=== PATIENT | female | born 1950 | race Caucasian/White ===

== ENCOUNTER 2019-04-02 13:01 | Day surgery (SDC) | payer MEDICARE, OTHER ==
[~2019-04-02] VITALS: Ht 165.1 cm; Wt 61.6 kg
[~2019-04-02 13:01] MED LIST: ADVICOR; ASPI81EC; DIPASPER PO; FAMO20 PO; LEVSOD100; LEVSOD75 PO; LISI5 PO; PANT20 PO; PANT40 PO; ROSU10TA PO; ROSU5 PO; TRAM50 PO; VITS; Zofran4 MG PO
== END 2019-04-02 15:10 | disposition home or self-care (01) ==
LOC: ORSCSDS 13:01
PROVIDERS: Surgery
PROC: 0DB48ZX Excision of Esophagogastric Junction, Via Natural or Artificial Opening Endoscopic, Diagnostic (ICD-10-PCS; principal; 2019-04-02 14:15)
PROC: 0DB68ZX Excision of Stomach, Via Natural or Artificial Opening Endoscopic, Diagnostic (ICD-10-PCS; principal; 2019-04-02 14:15)
DX: K22.70 Barrett's esophagus without dysplasia (principal); K21.9 Gastro-esophageal reflux disease without esophagitis; K44.9 Diaphragmatic hernia without obstruction or gangrene; Z86.73 Personal history of transient ischemic attack (TIA), and cerebral infarction without residual deficits; E03.9 Hypothyroidism, unspecified; Z79.82 Long term (current) use of aspirin; Z79.899 Other long term (current) drug therapy
CPT/HCPCS: 88305; 88342; J2704; J7120

== ENCOUNTER → 2020-11-17 | Outpatient (CLI) | payer MEDICARE ==
[~2020-11-17] MED LIST changes: +ASPI81CH PO; -ASPI81EC; +FOLIC ACID0.8 MG PO; +LEVFLO500 PO; +LEVSOD100 PO; +PANTOPRAZOLE SO40 M2 PO; +Vitamin D1000 UNI1 PO
[2020-11-21 13:20] LABS: CORONAVIRUS (COVID19) CSH-NRL Negative (Negative)
== END ==
LOC: LAB 19:27
PROVIDERS: Physician Assistant
DX: Z20.828 Contact with and (suspected) exposure to other viral communicable diseases (principal)
CPT/HCPCS: U0003

== ENCOUNTER 2020-12-15 00:06 | Day surgery (SDC) | payer MEDICARE ==
[~2020-12-15 00:06] MED LIST changes: -FOLIC ACID0.8 MG PO; -LEVSOD100 PO; -PANTOPRAZOLE SO40 M2 PO; -Vitamin D1000 UNI1 PO
[2020-12-15] MEDS ORDERED: PANTOPRAZOLE SO40 M2 PO (09:21)
[2020-12-15] MEDS ORDERED: LEVSOD100 PO (09:21)
[2020-12-15] MEDS ORDERED: Vitamin D1000 UNI1 PO (09:22)
[2020-12-15] MEDS ORDERED: FOLIC ACID0.8 MG PO (09:23)
== END 2020-12-15 10:10 | disposition home or self-care (01) ==
LOC: LAB 00:06
DX: I95.9 Hypotension, unspecified (principal); E16.2 Hypoglycemia, unspecified; Z79.82 Long term (current) use of aspirin; Z79.899 Other long term (current) drug therapy; Z88.1 Allergy status to other antibiotic agents; Z88.2 Allergy status to sulfonamides; Z91.040 Latex allergy status; Z91.048 Other nonmedicinal substance allergy status; Z20.822 Contact with and (suspected) exposure to COVID-19
CPT/HCPCS: 36415; 80400; 82533; 96372; J0834

== ENCOUNTER → 2021-02-02 | Outpatient (CLI) | payer MEDICARE ==
[~2021-02-02] MED LIST changes: +FOLIC ACID0.8 MG PO; +LEVSOD100 PO; +PANTOPRAZOLE SO40 M2 PO; +Vitamin D1000 UNI1 PO
[2021-02-06 13:08] LABS: CREATININE, URINE 53.6 mg/dL (Not Estab.); N-TELO/CREAT. RATIO 13 (0-89); N-TELOPEPTIDE 61 nmol BCE (Not Estab.)
== END | disposition home or self-care (01) ==
LOC: LAB SHORT 05:00 → LAB 05:00 → LAB FUT 01-26 14:00
PROVIDERS: Internal Medicine
DX: E78.5 Hyperlipidemia, unspecified (principal); E03.9 Hypothyroidism, unspecified; E55.9 Vitamin D deficiency, unspecified; E53.8 Deficiency of other specified B group vitamins; M81.0 Age-related osteoporosis without current pathological fracture; Z79.899 Other long term (current) drug therapy
CPT/HCPCS: 82523; 82570

== ENCOUNTER → 2021-11-15 | Outpatient (CLI) | payer MEDICARE | END | disposition home or self-care (01) | LOC: LAB SHORT 12:31 → LAB 12:31 | DX: D22.72 Melanocytic nevi of left lower limb, including hip (principal); L81.4 Other melanin hyperpigmentation | CPT/HCPCS: 88305 ==

== ENCOUNTER 2022-02-07 09:49 | Day surgery (SDC) | payer MEDICARE ==
[~2022-02-07 09:49] MED LIST changes: +ROSU10TA
== END 2022-02-12 22:49 | disposition home or self-care (01) ==
LOC: MOI MAM 09:49
DX: D05.12 Intraductal carcinoma in situ of left breast (principal); Z85.3 Personal history of malignant neoplasm of breast; Z17.0 Estrogen receptor positive status [ER+]
CPT/HCPCS: 19281; A4648

== ENCOUNTER 2023-06-02 09:04 | Emergency (ER) | payer MEDICARE ==
[~2023-06-02] VITALS: Ht 165.1 cm; Wt 52.2 kg
[2023-06-02 10:10] LABS: BASOPHILS ABSOLUTE AUTO 0.06 K/mm3 (0.00-0.23); BASOPHILS PERCENT AUTO 1 % (0-2); EOSINOPHILS ABSOLUTE AUTO 0.07 K/mm3 (0.00-0.68); EOSINOPHILS PERCENT AUTO 1 % (0-6); Hematocrit 38.6 % (33.0-51.0); Hemoglobin 12.7 g/dL (11.5-16.0); IMMATURE GRAN ABSOLUTE AUTO 0.01 K/mm3 (0.00-0.10); IMMATURE GRAN PERCENT AUTO 0 % (0-1); LYMPHOCYTES ABSOLUTE AUTO 0.99 K/mm3 (0.84-5.20); LYMPHOCYTES PERCENT AUTO 18 % (21-46); MONOCYTES ABSOLUTE AUTO 0.39 K/mm3 (0.16-1.47); MONOCYTES PERCENT AUTO 7 % (4-13); Mean Corpuscular HGB 30.5 pg (26.0-34.0); Mean Corpuscular HGB Conc 32.9 g/dL (31.5-36.5); Mean Corpuscular Volume 93 fL (80-100); Mean Platelet Volume 9.6 fL (9.1-12.4); NEUTROPHILS ABSOLUTE AUTO 3.85 K/mm3 (1.96-9.15); NEUTROPHILS PERCENT AUTO 72 % (41-73); Platelet Count 183 K/mm3 (150-400); RDW Coefficient Variation 14.6 % (11.7-14.2); RDW Standard Deviation 49.8 fL (35.1-46.3); Red Blood Cell Count 4.17 M/mm3 (3.80-5.20); White Blood Cell Count 5.37 K/mm3 (4.00-11.30)
[2023-06-02 10:41] LABS: Albumin, Blood 3.2 g/dL (3.4-5.0); Albumin/Globulin Ratio 0.9 (0.8-1.8); Bilirubin, Total 0.5 mg/dL (0.1-1.0); Bun/Creatinine Ratio 16.8 (12.0-20.0); Calcium, Blood 8.9 mg/dL (8.5-10.1); Creatinine, Blood 1.13 mg/dL (0.40-1.00); Globulin, Blood 3.7 g/dL (2.2-4.0); Potassium, Blood 3.9 mmol/L (3.5-5.5); Total Protein, Blood 6.9 g/dL (6.4-8.2)
[2023-06-02 11:45] VITALS: BP 139/96
== END 2023-06-02 12:04 | disposition home or self-care (01) ==
LOC: ER 09:04
PROVIDERS: Emergency Medicine
DX: R55 Syncope and collapse (principal); E03.9 Hypothyroidism, unspecified; E78.00 Pure hypercholesterolemia, unspecified; Z88.2 Allergy status to sulfonamides; Z88.1 Allergy status to other antibiotic agents; Z91.040 Latex allergy status; Z91.048 Other nonmedicinal substance allergy status; Z79.899 Other long term (current) drug therapy; Z79.82 Long term (current) use of aspirin
CPT/HCPCS: 80053; 83735; 83880; 84484; 85025; 93005; 93010; 96360; 99285-25; J7030

== ENCOUNTER 2023-08-07 05:38 | Emergency (ER) | payer MEDICARE ==
[~2023-08-07] VITALS: Ht 165.1 cm; Wt 63.5 kg
[2023-08-07 06:32] LABS: BASOPHILS ABSOLUTE AUTO 0.07 K/mm3 (0.00-0.23); BASOPHILS PERCENT AUTO 1 % (0-2); EOSINOPHILS ABSOLUTE AUTO 0.13 K/mm3 (0.00-0.68); EOSINOPHILS PERCENT AUTO 3 % (0-6); Hematocrit 39.9 % (33.0-51.0); Hemoglobin 13.3 g/dL (11.5-16.0); IMMATURE GRAN ABSOLUTE AUTO 0.08 K/mm3 (0.00-0.10); IMMATURE GRAN PERCENT AUTO 2 % (0-1); LYMPHOCYTES ABSOLUTE AUTO 1.19 K/mm3 (0.84-5.20); LYMPHOCYTES PERCENT AUTO 23 % (21-46); MONOCYTES ABSOLUTE AUTO 0.39 K/mm3 (0.16-1.47); MONOCYTES PERCENT AUTO 8 % (4-13); Mean Corpuscular HGB 30.4 pg (26.0-34.0); Mean Corpuscular HGB Conc 33.3 g/dL (31.5-36.5); Mean Corpuscular Volume 91 fL (80-100); Mean Platelet Volume 9.6 fL (9.1-12.4); NEUTROPHILS ABSOLUTE AUTO 3.24 K/mm3 (1.96-9.15); NEUTROPHILS PERCENT AUTO 64 % (41-73); Platelet Count 191 K/mm3 (150-400); RDW Coefficient Variation 14.6 % (11.7-14.2); RDW Standard Deviation 49.5 fL (35.1-46.3); Red Blood Cell Count 4.37 M/mm3 (3.80-5.20)
[2023-08-07 06:49] LABS: Albumin, Blood 3.3 g/dL (3.4-5.0); Albumin/Globulin Ratio 0.9 (0.8-1.8); Bilirubin, Total 0.5 mg/dL (0.1-1.0); Bun/Creatinine Ratio 16.9 (12.0-20.0); Calcium, Blood 9.1 mg/dL (8.5-10.1); Creatinine, Blood 0.95 mg/dL (0.40-1.00); Globulin, Blood 3.5 g/dL (2.2-4.0); Potassium, Blood 4.1 mmol/L (3.5-5.5); Total Protein, Blood 6.8 g/dL (6.4-8.2)
[2023-08-07 10:30] VITALS: BP 142/85
== END 2023-08-07 09:58 | disposition home or self-care (01) ==
LOC: ER 05:38
PROVIDERS: Student in an Organized Health Care Education/Training Program
DX: S01.01XA Laceration without foreign body of scalp, initial encounter (principal); R55 Syncope and collapse; W19.XXXA Unspecified fall, initial encounter; Z88.2 Allergy status to sulfonamides; Z91.048 Other nonmedicinal substance allergy status; Z88.1 Allergy status to other antibiotic agents; Z79.899 Other long term (current) drug therapy; Z79.82 Long term (current) use of aspirin; Z85.3 Personal history of malignant neoplasm of breast; E03.9 Hypothyroidism, unspecified; E78.00 Pure hypercholesterolemia, unspecified
CPT/HCPCS: 12001; 70450; 80053; 83880; 84484; 85025; 90471; 90715; 93005; 93010; 99284-25; A9270

== ENCOUNTER 2023-08-13 08:42 | Emergency (ER) | payer MEDICARE ==
[~2023-08-13] VITALS: Ht 165.1 cm; Wt 63.5 kg
[2023-08-13 09:21] LABS: BASOPHILS ABSOLUTE AUTO 0.05 K/mm3 (0.00-0.23); BASOPHILS PERCENT AUTO 1 % (0-2); EOSINOPHILS PERCENT AUTO 2 % (0-6); Hematocrit 42.6 % (33.0-51.0); Hemoglobin 14.4 g/dL (11.5-16.0); IMMATURE GRAN ABSOLUTE AUTO 0.01 K/mm3 (0.00-0.10); IMMATURE GRAN PERCENT AUTO 0 % (0-1); LYMPHOCYTES PERCENT AUTO 17 % (21-46); MONOCYTES ABSOLUTE AUTO 0.47 K/mm3 (0.16-1.47); MONOCYTES PERCENT AUTO 7 % (4-13); Mean Corpuscular HGB 30.6 pg (26.0-34.0); Mean Corpuscular HGB Conc 33.8 g/dL (31.5-36.5); Mean Corpuscular Volume 90 fL (80-100); Mean Platelet Volume 9.5 fL (9.1-12.4); NEUTROPHILS ABSOLUTE AUTO 4.63 K/mm3 (1.96-9.15); NEUTROPHILS PERCENT AUTO 73 % (41-73); Platelet Count 203 K/mm3 (150-400); RDW Coefficient Variation 14.4 % (11.7-14.2); RDW Standard Deviation 47.8 fL (35.1-46.3); Red Blood Cell Count 4.71 M/mm3 (3.80-5.20); White Blood Cell Count 6.36 K/mm3 (4.00-11.30)
[2023-08-13 09:43] LABS: Albumin, Blood 3.4 g/dL (3.4-5.0); Albumin/Globulin Ratio 0.8 (0.8-1.8); Bilirubin, Total 0.6 mg/dL (0.1-1.0); Bun/Creatinine Ratio 19.2 (12.0-20.0); Calcium, Blood 9.4 mg/dL (8.5-10.1); Creatinine, Blood 0.89 mg/dL (0.40-1.00); Globulin, Blood 4.2 g/dL (2.2-4.0); Total Protein, Blood 7.6 g/dL (6.4-8.2)
[2023-08-13 22:24] VITALS: BP 141/95
== END 2023-08-13 22:25 | disposition home or self-care (01) ==
LOC: ER 08:42
PROVIDERS: Emergency Medicine
DX: S22.081A Stable burst fracture of T11-T12 vertebra, initial encounter for closed fracture (principal); K59.00 Constipation, unspecified; X58.XXXA Exposure to other specified factors, initial encounter; Z88.2 Allergy status to sulfonamides; Z91.048 Other nonmedicinal substance allergy status; Z91.040 Latex allergy status; Z88.1 Allergy status to other antibiotic agents; Z79.899 Other long term (current) drug therapy; Z79.82 Long term (current) use of aspirin; Z85.3 Personal history of malignant neoplasm of breast; E03.9 Hypothyroidism, unspecified; E78.00 Pure hypercholesterolemia, unspecified
CPT/HCPCS: 72148; 74177; 80053; 83690; 85025; 93005; 93010; 99285-25; A9270; Q9967

== ENCOUNTER → 2023-09-23 | Outpatient (CLI) | payer MEDICARE ==
[2023-09-23 17:13] LABS: Creatinine Urine 61.8 mg/dL (27.00-270.00)
[2023-09-26 09:10] LABS: M-SPIKE, % Not Observed % (Not Observed); PROTEIN,TOTAL,URINE 5.9 mg/dL (Not Estab.)
== END | disposition home or self-care (01) ==
LOC: LAB 13:20 → LAB SHORT 13:20 → LAB FUT 09-16 15:00
PROVIDERS: Internal Medicine Clinical Cardiac Electrophysiology
DX: I95.1 Orthostatic hypotension (principal); K59.09 Other constipation
CPT/HCPCS: 81050; 82570; 84156; 84166

== ENCOUNTER 2023-10-15 10:06 | Emergency (ER) | payer MEDICARE ==
[~2023-10-15] VITALS: Ht 165.1 cm; Wt 59.0 kg
[2023-10-15 10:40] VITALS: BP 102/78
[2023-10-15 11:17] LABS: BASOPHILS ABSOLUTE AUTO 0.02 K/mm3 (0.00-0.23); BASOPHILS PERCENT AUTO 0 % (0-2); EOSINOPHILS ABSOLUTE AUTO 0.12 K/mm3 (0.00-0.68); EOSINOPHILS PERCENT AUTO 1 % (0-6); Hematocrit 38.7 % (33.0-51.0); Hemoglobin 12.5 g/dL (11.5-16.0); IMMATURE GRAN ABSOLUTE AUTO 0.04 K/mm3 (0.00-0.10); IMMATURE GRAN PERCENT AUTO 1 % (0-1); LYMPHOCYTES ABSOLUTE AUTO 0.68 K/mm3 (0.84-5.20); LYMPHOCYTES PERCENT AUTO 8 % (21-46); MONOCYTES ABSOLUTE AUTO 0.17 K/mm3 (0.16-1.47); MONOCYTES PERCENT AUTO 2 % (4-13); Mean Corpuscular HGB 30.3 pg (26.0-34.0); Mean Corpuscular HGB Conc 32.3 g/dL (31.5-36.5); Mean Corpuscular Volume 94 fL (80-100); Mean Platelet Volume 9.4 fL (9.1-12.4); NEUTROPHILS ABSOLUTE AUTO 7.79 K/mm3 (1.96-9.15); NEUTROPHILS PERCENT AUTO 88 % (41-73); Platelet Count 237 K/mm3 (150-400); RDW Coefficient Variation 14.6 % (11.7-14.2); RDW Standard Deviation 50.3 fL (35.1-46.3); Red Blood Cell Count 4.13 M/mm3 (3.80-5.20); White Blood Cell Count 8.82 K/mm3 (4.00-11.30)
[2023-10-15 11:36] LABS: Albumin, Blood 3.2 g/dL (3.4-5.0); Albumin/Globulin Ratio 0.8 (0.8-1.8); Bilirubin, Total 0.5 mg/dL (0.1-1.0); Bun/Creatinine Ratio 15.4 (12.0-20.0); Calcium, Blood 9.2 mg/dL (8.5-10.1); Creatinine, Blood 0.91 mg/dL (0.40-1.00); Potassium, Blood 3.4 mmol/L (3.5-5.5); Total Protein, Blood 7.2 g/dL (6.4-8.2)
[2023-10-15] MEDS ORDERED: Betamethasone D15 G2 TOP (13:19)
== END 2023-10-15 13:58 | disposition home or self-care (01) ==
LOC: ER 10:06
PROVIDERS: Physician Assistant
DX: R23.3 Spontaneous ecchymoses (principal); Z88.2 Allergy status to sulfonamides; Z91.048 Other nonmedicinal substance allergy status; Z91.040 Latex allergy status; Z88.1 Allergy status to other antibiotic agents; Z79.890 Hormone replacement therapy; Z79.82 Long term (current) use of aspirin; Z79.899 Other long term (current) drug therapy
CPT/HCPCS: 80053; 83605; 83880; 85025; 93005; 93010; 99283-25

== ENCOUNTER 2023-11-16 18:45 | Emergency (ER) | payer MEDICARE ==
[~2023-11-16] VITALS: Ht 165.1 cm; Wt 59.0 kg
[~2023-11-16 18:45] MED LIST changes: +Betamethasone D15 G2 TOP
[2023-11-16] MEDS ORDERED: FLUDROCORTISON0.1 M2 PO (19:17)
[2023-11-16] MEDS ORDERED: MIDO5 PO (19:17)
[2023-11-16 19:55] LABS: BASOPHILS ABSOLUTE AUTO 0.08 K/mm3 (0.00-0.23); BASOPHILS PERCENT AUTO 1 % (0-2); EOSINOPHILS ABSOLUTE AUTO 0.16 K/mm3 (0.00-0.68); EOSINOPHILS PERCENT AUTO 2 % (0-6); Hematocrit 36.6 % (33.0-51.0); Hemoglobin 12.2 g/dL (11.5-16.0); IMMATURE GRAN ABSOLUTE AUTO 0.03 K/mm3 (0.00-0.10); IMMATURE GRAN PERCENT AUTO 0 % (0-1); LYMPHOCYTES ABSOLUTE AUTO 2.19 K/mm3 (0.84-5.20); LYMPHOCYTES PERCENT AUTO 31 % (21-46); MONOCYTES PERCENT AUTO 9 % (4-13); Mean Corpuscular HGB 31.1 pg (26.0-34.0); Mean Corpuscular HGB Conc 33.3 g/dL (31.5-36.5); Mean Corpuscular Volume 93 fL (80-100); Mean Platelet Volume 10.8 fL (9.1-12.4); NEUTROPHILS ABSOLUTE AUTO 3.94 K/mm3 (1.96-9.15); NEUTROPHILS PERCENT AUTO 56 % (41-73); Platelet Count 213 K/mm3 (150-400); RDW Coefficient Variation 14.6 % (11.7-14.2); RDW Standard Deviation 50.2 fL (35.1-46.3); Red Blood Cell Count 3.92 M/mm3 (3.80-5.20)
[2023-11-16 20:04] LABS: Albumin, Blood 3.2 g/dL (3.4-5.0); Albumin/Globulin Ratio 0.9 (0.8-1.8); Bilirubin, Total 0.4 mg/dL (0.1-1.0); Bun/Creatinine Ratio 15.8 (12.0-20.0); Calcium, Blood 8.8 mg/dL (8.5-10.1); Creatinine, Blood 0.7 mg/dL (0.40-1.00); Globulin, Blood 3.4 g/dL (2.2-4.0); Potassium, Blood 3.6 mmol/L (3.5-5.5); Total Protein, Blood 6.6 g/dL (6.4-8.2)
[2023-11-16 20:09] LABS: International Normalized Ratio 1.05
[2023-11-16 23:28] VITALS: BP 99/66
== END 2023-11-16 23:52 | disposition short-term general hospital (02) ==
LOC: ER 18:45
PROVIDERS: Emergency Medicine
DX: K92.1 Melena (principal); R09.89 Other specified symptoms and signs involving the circulatory and respiratory systems; E03.9 Hypothyroidism, unspecified; E78.00 Pure hypercholesterolemia, unspecified; Z88.1 Allergy status to other antibiotic agents; Z88.2 Allergy status to sulfonamides; Z91.040 Latex allergy status; Z91.048 Other nonmedicinal substance allergy status; Z79.82 Long term (current) use of aspirin; Z79.890 Hormone replacement therapy; Z79.899 Other long term (current) drug therapy
CPT/HCPCS: 74174; 80053; 85025; 85610; 86850; 86900; 86901; 96361; 96374-59; 99285-25; C9113; J7030; Q9967

== ENCOUNTER 2023-12-30 13:34 | Emergency (ER) | payer MEDICARE ==
[~2023-12-30] VITALS: Ht 165.1 cm; Wt 55.3 kg
[~2023-12-30 13:34] MED LIST changes: +FLUDROCORTISON0.1 M2 PO; +Midodrine HCl2.5 MG PO; -ROSU10TA
[2023-12-30 13:58] LABS: BASOPHILS ABSOLUTE AUTO 0.07 K/mm3 (0.00-0.23); BASOPHILS PERCENT AUTO 1 % (0-2); EOSINOPHILS ABSOLUTE AUTO 0.08 K/mm3 (0.00-0.68); EOSINOPHILS PERCENT AUTO 1 % (0-6); Hematocrit 39.2 % (33.0-51.0); Hemoglobin 12.5 g/dL (11.5-16.0); IMMATURE GRAN ABSOLUTE AUTO 0.01 K/mm3 (0.00-0.10); IMMATURE GRAN PERCENT AUTO 0 % (0-1); LYMPHOCYTES ABSOLUTE AUTO 1.64 K/mm3 (0.84-5.20); LYMPHOCYTES PERCENT AUTO 26 % (21-46); MONOCYTES ABSOLUTE AUTO 0.49 K/mm3 (0.16-1.47); MONOCYTES PERCENT AUTO 8 % (4-13); Mean Corpuscular HGB 29.4 pg (26.0-34.0); Mean Corpuscular HGB Conc 31.9 g/dL (31.5-36.5); Mean Corpuscular Volume 92 fL (80-100); Mean Platelet Volume 10.1 fL (9.1-12.4); NEUTROPHILS ABSOLUTE AUTO 3.93 K/mm3 (1.96-9.15); NEUTROPHILS PERCENT AUTO 63 % (41-73); Platelet Count 218 K/mm3 (150-400); RDW Coefficient Variation 14.5 % (11.7-14.2); RDW Standard Deviation 49.2 fL (35.1-46.3); Red Blood Cell Count 4.25 M/mm3 (3.80-5.20); White Blood Cell Count 6.22 K/mm3 (4.00-11.30)
[2023-12-30 14:24] LABS: Albumin, Blood 3.6 g/dL (3.4-5.0); Bilirubin, Total 0.5 mg/dL (0.1-1.0); Bun/Creatinine Ratio 18.2 (12.0-20.0); Calcium, Blood 9.7 mg/dL (8.5-10.1); Creatinine, Blood 0.77 mg/dL (0.40-1.00); Globulin, Blood 3.6 g/dL (2.2-4.0); Potassium, Blood 3.8 mmol/L (3.5-5.5); Total Protein, Blood 7.2 g/dL (6.4-8.2)
[2023-12-30 15:00] VITALS: BP 171/98
[2023-12-31] MEDS ORDERED: Robaxin750 MG PO (18:10)
[2023-12-31] MEDS ORDERED: BISA5EC PO (18:10)
[2023-12-31] MEDS ORDERED: MIRALAX17 GM PO (18:10)
[2023-12-31] MEDS ORDERED: ASPERFLEX1 EACH TOP (18:10)
== END 2023-12-30 16:00 | disposition home or self-care (01) ==
LOC: ER 13:34
PROVIDERS: Emergency Medicine
DX: G45.9 Transient cerebral ischemic attack, unspecified (principal); E03.9 Hypothyroidism, unspecified; E78.00 Pure hypercholesterolemia, unspecified; Z79.52 Long term (current) use of systemic steroids; Z79.82 Long term (current) use of aspirin; Z79.899 Other long term (current) drug therapy; Z88.1 Allergy status to other antibiotic agents; Z88.2 Allergy status to sulfonamides; Z91.040 Latex allergy status; Z91.048 Other nonmedicinal substance allergy status
CPT/HCPCS: 70450; 71045; 80053; 85025; 93005; 93010; 99285-25

== ENCOUNTER 2023-12-31 13:02 | Observation (INO) | payer MEDICARE ==
[~2023-12-31] VITALS: Ht 165.1 cm; Wt 53.0 kg
[2023-12-31 15:18] LABS: BASOPHILS ABSOLUTE AUTO 0.05 K/mm3 (0.00-0.23); BASOPHILS PERCENT AUTO 1 % (0-2); EOSINOPHILS ABSOLUTE AUTO 0.09 K/mm3 (0.00-0.68); EOSINOPHILS PERCENT AUTO 2 % (0-6); Hematocrit 39.4 % (33.0-51.0); Hemoglobin 12.6 g/dL (11.5-16.0); IMMATURE GRAN ABSOLUTE AUTO 0.01 K/mm3 (0.00-0.10); IMMATURE GRAN PERCENT AUTO 0 % (0-1); LYMPHOCYTES ABSOLUTE AUTO 1.46 K/mm3 (0.84-5.20); LYMPHOCYTES PERCENT AUTO 24 % (21-46); MONOCYTES ABSOLUTE AUTO 0.44 K/mm3 (0.16-1.47); MONOCYTES PERCENT AUTO 7 % (4-13); Mean Corpuscular HGB 29.5 pg (26.0-34.0); Mean Corpuscular Volume 92 fL (80-100); Mean Platelet Volume 10.7 fL (9.1-12.4); NEUTROPHILS ABSOLUTE AUTO 4.07 K/mm3 (1.96-9.15); NEUTROPHILS PERCENT AUTO 66 % (41-73); Platelet Count 217 K/mm3 (150-400); RDW Coefficient Variation 14.5 % (11.7-14.2); RDW Standard Deviation 48.7 fL (35.1-46.3); Red Blood Cell Count 4.27 M/mm3 (3.80-5.20); White Blood Cell Count 6.12 K/mm3 (4.00-11.30)
[2023-12-31 15:33] LABS: Albumin, Blood 3.7 g/dL (3.4-5.0); Bilirubin, Total 0.5 mg/dL (0.1-1.0); Bun/Creatinine Ratio 20.8 (12.0-20.0); Calcium, Blood 9.7 mg/dL (8.5-10.1); Creatinine, Blood 0.72 mg/dL (0.40-1.00); Globulin, Blood 3.6 g/dL (2.2-4.0); Potassium, Blood 3.6 mmol/L (3.5-5.5); Total Protein, Blood 7.3 g/dL (6.4-8.2)
[2023-12-31] MEDS ORDERED: Acetaminophen 500 MG Tab PO ONE (18:05)
[2023-12-31] MEDS ORDERED: BISA5EC PO (18:10)
[2023-12-31] MEDS ORDERED: MIRALAX17 GM PO (18:10)
[2023-12-31] MEDS ORDERED: Robaxin750 MG PO (18:10)
[2023-12-31] MEDS ORDERED: ASPERFLEX1 EACH TOP (18:10)
[2023-12-31] MEDS ORDERED: FLU VACC QS2023-24(6MOS UP)/PF 60 MCG/0.5 ML SYRINGE IM SCH (19:05)
[2023-12-31] MEDS ORDERED: NS 1,000 ML IV SCH (19:10)
[2023-12-31] MEDS ORDERED: Ondansetron HCl 2 MG / ML 2ML Vial IV PRN (19:10)
[2023-12-31] MEDS ORDERED: Acetaminophen 325 MG TABLET PO PRN (19:10)
[2023-12-31 20:42] LABS: Source, Urine Clean Catch
[2023-12-31 20:50] LABS: Appearance, Urine Clear (Clear); Bilirubin, Urine Neg (Neg); Blood, Urine Neg (Neg); Color, Urine Yellow (P-Yellow); Glucose Qualitative, Urine Neg (Neg); Ketones, Urine 2+ (Neg); Leukocyte Esterase, Urine 1+ (Neg); Nitrite, Urine Neg (Neg); Protein, Urine Neg (Neg); Urobilinogen, Urine NORM (Normal); pH, Urine 6.5 (5.0-8.0)
[2023-12-31 20:58] LABS: Bacteria Few /hpf; Red Blood Cells, Urine 0-2 /hpf (0-2); Squamous Epithelial Cells Few /hpf (Few); Transitional Epithelial Cells Rare /hpf (0-Rare)
[2023-12-31 21:41] VITALS: BP 137/88
[2024-01-01 03:42] VITALS: BP 113/73
--- NOTE | 2024-01-01 04:06 | NUR ---
SHIFT SUMMARY 57 YR F ADMITTED TO THIS UNIT EARLY THIS SHIFT FOR S/S OF TIA. FULL CODE. WAS AT BEDSIDE AND IS A GREAT HISTORIAN HE IS THE ONE WHO CARES FOR HER AT HOME. NO ACUTE CHANGES THIS SHIFT. PT AMBULATES WITH ASSISTANCE TO THE BATHROOM. SHE IS A&O X 4 AND IS ABLE TO MAKE HER NEEDS KNOWN. VS ARE STABLE AND PT IS RESTING COMFORTABLY. NS RUNNING @ 125. PER WIRE BORDER ASSEMBLER, PT HAD A 7 BEAT RUN OF VTAC @ 0320 BUT WAS ASYMPTOMATIC AND SLEEPING. PT HAS NO C/O PAIN OR DISCOMFORT THIS SHIFT. HX OF REYNARDS AND PARKINSONS. BED IN LOW POSITION AND CALL LIGHT IN REACH.
[2024-01-01 06:00] LABS: CHOL/HDL RATIO 2.3; Cholesterol 139 mg/dL (50-200); HDL Cholesterol 60 mg/dL (>39); Low Density Lipoprotein Chol 58 mg/dL (0-110); Triglycerides 104 mg/dL (30-160); Very Low Density Lipoprot Chol 20 mg/dL (6-32)
[2024-01-01] MEDS ORDERED: Pantoprazole Sodium 40 MG Tab PO SCH (06:00)
[2024-01-01] MEDS ORDERED: Levothyroxine Sodium 0.1 MG Tab PO SCH (06:00)
[2024-01-01 07:21] VITALS: BP 122/89
[2024-01-01] MEDS ORDERED: Fludrocortisone Acetate 0.1 MG Tab PO SCH (09:00)
[2024-01-01] MEDS ORDERED: Enoxaparin 40 MG/0.4 ML SYR SC SCH (09:00)
[2024-01-01] MEDS ORDERED: Cholecalciferol 1000 Unit Tablet (=25MCG) PO SCH (09:00)
[2024-01-01] MEDS ORDERED: Folic Acid 1 MG TAB PO SCH (09:00)
[2024-01-01] MEDS ORDERED: Rosuvastatin Calcium 10 MG Tab PO SCH (09:00)
[2024-01-01] MEDS ORDERED: Midodrine 5 MG Tab PO SCH ×2 (09:00)
[2024-01-01] MEDS ORDERED: Aspirin 81 MG Chew PO SCH (09:00)
[2024-01-01 12:52] VITALS: BP 144/91
--- NOTE | 2024-01-01 15:01 | NUR ---
Spiritual Care Visit. Pt. is awake in bed, and welcomes my visit. Pt. is pleasant, and verbalizes that she is a member of [facility] in [place]. Facilitated a life review and established rapport. Pt. displays evidence of being engaged and aware. Prayed with Pt. Pt. verbalized gratitude for the spiritual care visit and welcomed this cleat blanker to return.
[2024-01-01 15:34] VITALS: BP 134/87
[2024-01-01] MEDS ORDERED: EUTHYROX50 MCG PO (16:56)
--- NOTE | 2024-01-01 17:43 | NUR ---
SHIFT SUMMARY PT AOX4, SBA TO THE BSC. FLUIDS DC'D THIS SHIFT. PT HAS HAD NO COMPLAINTS OF CP, N/T, SOB, N/V OR DIARRHEA. SHE CALLS WELL AND MAKES HER NEEDS KNOWN. MRI INITIALLY SCHEDULED FOR TODAY BUT DUE TO COILS PLACED IN HER INTESTINES, THE MRI COULD NOT BE COMPLETED. THE PROVIDER IS AWARE. NO EVENTS PER TELE. CALL LIGHT WITHIN REACH, BED IN THE LOWEST POSITION. WILL REPORT TO ONCOMING NURSE.
[2024-01-01 19:18] VITALS: BP 131/90
[2024-01-02] VITALS (7 sets, daily range): BP systolic 134–166; BP diastolic 93–104
--- NOTE | 2024-01-02 05:50 | NUR ---
SHIFT SUMMARY 73 YR F ADMITTED ON 12/31/23. FULL CODE. NO ACUTE CHANGES THIS SHIFT. PT WAS UP SEVERAL TIMES TO URINATE THROUGHT THE NIGHT. SHE IS ONLY VOIDING SMALL AMOUNTS AT A TIME. NO C/O PAIN OR DISCOMFORT THIS SHIFT. PER HOSPITAL UNIT CLERK, PT HAD A <3 SEC RUN OF SVT THIS A.M. PT WAS SLEEPING PEACEFULLY AND DID NOT APPEAR TO BE IN ANY DISTRESS. PT IS A&O X 4 AND USES THE CALL LIGHT APPROPRIATELY.
--- NOTE | 2024-01-02 12:30 | NUR ---
CHANGE TO NEURO STATUS: AROUND 12:00, PATIENT'S CAME OUT OF THE ROOM TO INFORM THE RN THAT THE PATIENT WAS SHOWING SIGNS AND SYMPTOMS THAT BROUGHT THEM INTO THE HOSPITAL. THE PATIENT WAS SITTING UP IN THE CHAIR. SHE TRACKED THE RN WHEN SHE ENTERED THE ROOM. WHEN PATIENT ANSWERED THE QUESTION OF THE RN, HER SPEECH WAS SLURRED AND THICK. SHE WAS ABLE TO CORRECT HER SPEECH AND ANSWER MORE CLEARLY THE SECOND ATTEMPT. HOWEVER, HER SPEECH WAS STILL MORE SLURRED THAN THIS AM. PATIENT HAD FULL RANGE OF VISION, HER PUPILS WERE EQUAL AND REACTIVE, PATIENT CLINICAL APPLICATIONS MANAGER AND ARM STRENGTH EQUAL ACROSS ARMS, PATIENT'S SENSE OF SMELL INTACT, NO FACIAL DROOP, EQUAL MOBILITY OF HER TONGUE, EQUAL STRENGTH IN HER LEGS AND PATIENT ALERT AND ORIENTED X4. DISCUSSED WITH DR. MERAZ. NEW ORDERS TO GET THE PATIENT BACK INTO BED AND MONITOR. ALSO DISCUSSED ELEVATED BLOOD PRESSURE WITH DR. MERAZ. THROUGHOUT THIS TIME, PATIENT'S SPEECH CONTINUED TO IMPROVE. ONCE BACK IN BED, THIS TREND CONTINUED. NO OTHER NEURO DEFICITS NOTED DURING THIS TIME.
--- NOTE | 2024-01-02 18:23 | NUR ---
SHIFT SUMMARY: PATIENT DENIED PAIN OR DISCOMFORT THROUGHOUT THE SHIFT. PATIENT EXPERIENCED A TEMPORARY CHANGE TO HER SPEECH THIS AFTERNOON THAT RESOLVED WITHIN AN HOUR (SEE NURSE'S NOTE). PATIENT HAD NO OTHER NEURO CHANGES OR DEFICITS FOR THE REST OF THE SHIFT. PATIENT'S REPORTS THAT IF ANOTHER EPISODE OF A NEURO CHANGE OCCURS, THAT THEY WOULD BE OPEN TO HER STARTING PLAVIX. PATIENT EXPERIENCED SOME ELEVATED BLOOD PRESSURES THIS AFTERNOON. BY THE EVENING, HER BLOOD PRESSURES HAD STARTED TO TREND DOWNWARDS. PATIENT ASYMPTOMATIC. SCHEDULED MEDICATIONS FOR BLOOD PRESSURE SUPPORT HELD PER PARAMETERS. TWICE RN CALLED WITH MOMENTARTY ELEVATIONS IN HEART RATE THAT WERE UNRELATED TO INCREASE IN ACTIVITY. ONCE WAS DURING THE CHANGE IN NEURO STATUS (SEE NURSE'S NOTE). PATIENT ASYMPTOMATIC. PATIENT DID EXPERIENCE SOME DIZZINESS WITH PT/OT THAT RESOLVED WITH REST AND WAS PREVENTED BY CHANGING POSITIONS SLOWLY. PATIENT HAS A MINIMAL APPETITE. PATIENT EVALUATED BY SPEECH THERAPY. PATIENT CONFIRMED THAT SHE HAS BEEN LOSING WEIGHT RELATED TO LACK IN APPETITE. PATIENT'S AT BEDSIDE. HE IS ATTENTIVE TO THE PATIENT AND WORKING WITH STAFF TO PROVIDE THE BEST CARE.
--- NOTE | 2024-01-02 18:52 | NUR ---
Spiritual Care Visit. Pt. is awake in bed and welcomes my visit. Pt is pleasant. Discussed issues of her current extended prognosis and how her juliana responds to it. Consider matters of juliana and belief. Pt. displays a strong sense of spiritual grounding and trust. Prayed with Pt. Pt. vebrlaized gratitude for the spiritual care visit and welcomed this in flight refueling system repairer to return.
[2024-01-03 02:30] VITALS: BP 138/92
[2024-01-03] MEDS ORDERED: Levothyroxine Sodium 0.05 MG Tab PO SCH (06:00)
--- NOTE | 2024-01-03 06:44 | NUR ---
Shift Summary No changes in mentation or dizzyness t/o the night. Pt AOx4. She did remain in bed tonight so there was no orthostatic changes. She slept well t/o the night, no complaints.
[2024-01-03 07:26] VITALS: BP 126/85
--- NOTE | 2024-01-03 13:28 | NUR ---
PT DISCHARGED HOME. SPOUSE AT BEDSIDE. DISCHARGE INSTRUCTIONS DISCUSSED WITH PT AND SPOUSE. EMPHASIZED IMPORTANCE OF FOLLOWING UP WITH PCP. NO QUESTIONS OR CONCERNS AT THIS TIME.
== END 2024-01-03 13:20 | disposition home or self-care (01) ==
LOC: ER 13:02 → MEDS 13:03 → ENPENDDIS 01-02 13:00 → MEDS 01-03 13:20
PROVIDERS: Emergency Medicine; Nurse Practitioner Acute Care; ADMIT Internal Medicine
DX: G45.9 Transient cerebral ischemic attack, unspecified (principal); I95.1 Orthostatic hypotension; I73.00 Raynaud's syndrome without gangrene; E03.9 Hypothyroidism, unspecified; K21.9 Gastro-esophageal reflux disease without esophagitis; E78.00 Pure hypercholesterolemia, unspecified; Z79.82 Long term (current) use of aspirin; Z79.899 Other long term (current) drug therapy; Z88.2 Allergy status to sulfonamides; Z91.040 Latex allergy status; Z88.8 Allergy status to other drugs, medicaments and biological substances; Z85.3 Personal history of malignant neoplasm of breast
CPT/HCPCS: 36415; 70450; 70496; 70498; 80053; 80061; 81001; 85025; 92610; 93005; 93010; 93308; 93321; 96360; 96361; 97110; 97116; 97161; 97165; 97530; 99285-25; A9270; G0378; J7030; Q9967

== ENCOUNTER → 2025-09-20 | Outpatient (CLI) | payer MEDICARE ==
[~2025-09-20] MED LIST changes: +ASPERFLEX1 EACH TOP; +BISA5EC PO; +EUTHYROX50 MCG PO; +MIRALAX17 GM PO; +Robaxin750 MG PO
== END ==
LOC: LAB 13:23 → LAB SHORT 13:23
DX: L08.9 Local infection of the skin and subcutaneous tissue, unspecified (principal)
CPT/HCPCS: 87070; 87077; 87205